=== PATIENT | male | born 1970 | race Caucasian/White ===

== ENCOUNTER 2023-07-06 04:41 | Day surgery (SDC) | payer OTHER ==
[2023-07-06 09:18] VITALS: BMI 21.4
[2023-07-06 10:20] VITALS: RESP 16; TEMP 97.7
[2023-07-06 10:31] VITALS: BP 138/79
[2023-07-06 10:39] VITALS: PULSE 86
== END 2023-07-06 10:55 | disposition home or self-care (01) ==
LOC: JASU-ENDO 04:41
PROVIDERS: ATTEND Internal Medicine Gastroenterology
PROC: 0DBP8ZX Excision of Rectum, Via Natural or Artificial Opening Endoscopic, Diagnostic (ICD-10-PCS; principal; 2023-07-06 09:00)
DX: Z12.11 Encounter for screening for malignant neoplasm of colon (principal); D12.8 Benign neoplasm of rectum; K62.89 Other specified diseases of anus and rectum; K64.9 Unspecified hemorrhoids; I10 Essential (primary) hypertension
CPT/HCPCS: 88305-TC